=== PATIENT | female | born 1980 | race Caucasian/White ===

== ENCOUNTER 2016-07-15 07:00 | Outpatient (CLI) | payer OTHER ==
[2016-07-15 07:33] LABS: BASOPHILS % 0.4 (0.0-1.5); MEAN CORPUSCULAR HEMOGLOBIN 27.4 pg (28.0-34.0); MEAN CORPUSCULAR VOLUME 86.2 fl (80.0-100.0); NEUTROPHILS # 2.3 # k/uL (1.4-7.7)
[2016-07-15 07:46] LABS: eGFR (African) > 60; eGFR (Non-African) > 60
== END 2016-07-15 07:02 ==
LOC: LAB 07:00
PROVIDERS: ATTEND Nurse Practitioner Psychiatric/Mental Health
DX: Z51.81 Encounter for therapeutic drug level monitoring (principal); Z79.899 Other long term (current) drug therapy
CPT/HCPCS: 36415; 80053; 80061; 84443; 85025

== ENCOUNTER 2017-01-19 08:57 | Outpatient (CLI) | payer OTHER ==
[2017-01-19 09:39] LABS: BASOPHILS % 0.5 (0.0-1.5); EOSINOPHILS % 0.9 % (0.0-6.8); MEAN CORPUSCULAR HEMOGLOBIN 25.9 pg (28.0-34.0); MONOCYTES % 3.7 % (0.0-11.0); NEUTROPHILS # 2.9 # k/uL (1.4-7.7)
[2017-01-19 09:56] LABS: eGFR (African) > 60; eGFR (Non-African) > 60
== END 2017-01-19 09:00 ==
LOC: LAB 08:57
PROVIDERS: ATTEND Nurse Practitioner Psychiatric/Mental Health
DX: Z51.81 Encounter for therapeutic drug level monitoring (principal)
CPT/HCPCS: 36415; 80053; 85025

== ENCOUNTER 2017-07-22 07:06 | Outpatient (CLI) | payer OTHER ==
[2017-07-22 07:22] LABS: BASOPHILS % 0.6 (0.0-1.5); EOSINOPHILS % 1.7 % (0.0-6.8); MEAN CORPUSCULAR HEMOGLOBIN 27.3 pg (28.0-34.0); MEAN CORPUSCULAR VOLUME 84.6 fl (80.0-100.0); MONOCYTES % 3.7 % (0.0-11.0); NEUTROPHILS # 3.1 # k/uL (1.4-7.7)
[2017-07-22 07:58] LABS: eGFR (African) > 60; eGFR (Non-African) > 60
== END 2017-07-22 07:30 ==
LOC: LAB 07:06
PROVIDERS: ATTEND Family Medicine
DX: Z51.81 Encounter for therapeutic drug level monitoring (principal); Z79.899 Other long term (current) drug therapy
CPT/HCPCS: 36415; 80053; 80061; 84443; 85025

== ENCOUNTER 2018-01-17 08:30 | Outpatient (CLI) | payer MEDICARE, OTHER ==
[2018-01-17 11:29] LABS: eGFR (Non-African) > 60
[2018-01-17 11:30] LABS: BASOPHILS % 0.2 (0.0-1.5); EOSINOPHILS % 1.1 % (0.0-6.8); MEAN CORPUSCULAR HEMOGLOBIN 26.8 pg (28.0-34.0); MONOCYTES % 6.3 % (0.0-11.0); NEUTROPHILS # 2.7 # k/uL (1.4-7.7)
== END 2018-01-17 08:32 ==
LOC: LAB 08:30
PROVIDERS: ATTEND Psychiatry & Neurology Psychiatry
DX: Z51.81 Encounter for therapeutic drug level monitoring (principal); Z79.899 Other long term (current) drug therapy
CPT/HCPCS: 36415; 80053; 85025